=== PATIENT | female | born 1960 | race African-American/Black ===

== ENCOUNTER 2019-11-06 03:08 | Inpatient (IN) | payer MEDICARE, MEDICAID ==
[~2019-11-06] VITALS: Ht 160 cm; Wt 66.2 kg
[2019-11-06] MEDS ORDERED: ONDANSETRON HCL 4MG/2ML INJ IV STA (03:15)
[2019-11-06] MEDS ORDERED: SODIUM CHLORIDE 0.9% 1,000 ML IV ONE (03:15)
[2019-11-06 03:41] LABS: BASOPHILS % 0.8 % (0.0-2.0); EOSINOPHILS % 1.1 % (0.0-5.0); HEMATOCRIT. 43.3 % (36.0-48.0); HEMOGLOBIN. 14.8 g/dL (12.0-16.0); LYMPHOCYTES % 25.7 % (20.0-50.0); MEAN CORPUSCULAR HEMOGLOBIN 29.5 pg (28.0-32.0); MEAN CORPUSCULAR VOLUME 86.4 fL (81.0-99.0); MEAN PLATELET VOLUME 8.8 fl (7.4-10.4); MONOCYTES % 6.3 % (2.0-8.0); NEUTROPHILS % 66.1 % (40.0-76.0); PLATELET 285 x1000/uL (130-400); RED BLOOD CELL COUNT 5.01 mill/uL (4.2-5.4); RED CELL DISTRIBUTION WIDTH 14.3 % (11.6-14.6)
[2019-11-06 03:48] LABS: CHLORIDE 114 mEq/L (98-107)
[2019-11-06] MEDS ORDERED: HYDRALAZINE 20MG/ML VIAL IV ONE (04:15)
[2019-11-06] MEDS ORDERED: METOCLOPRAMIDE HCL 10MG/2ML VIAL IV ONE (04:15)
[2019-11-06] MEDS ORDERED: GUAIFENESIN 200MG/10ML SUGAR FREE UDC PO PRN (06:15)
[2019-11-06] MEDS ORDERED: DOCUSATE SODIUM 100MG CAPSULE PO PRN (06:15)
[2019-11-06] MEDS ORDERED: DEXTROSE 50% WATER 50ML SYRINGE IV PRN (06:15)
[2019-11-06] MEDS ORDERED: CLONIDINE 0.1MG TABLET PO PRN (06:15)
[2019-11-06] MEDS ORDERED: NITROGLYCERIN 0.4MG TABLET SL SL PRN (06:15)
[2019-11-06] MEDS ORDERED: KETOROLAC 15MG/ML VIAL IV PRN (06:15)
[2019-11-06] MEDS ORDERED: MAGNESIUM/ALUMINUM HYDROXIDE/SIMETHICONE 30ML UDC PO PRN (06:15)
[2019-11-06] MEDS ORDERED: ACETAMINOPHEN 325MG TABLET PO PRN ×2 (06:15)
[2019-11-06] MEDS ORDERED: ZOLPIDEM TARTRATE 5MG TABLET PO PRN (06:15)
[2019-11-06] MEDS ORDERED: IPRATROPIUM/ALBUTEROL 0.5-3(2.5)MG/3ML NEB ORI PRN (06:15)
[2019-11-06] MEDS: NITROGLYCERIN OINT 1GM/INCH UDPKT TD SCH ×3 (08:52→21:47)
[2019-11-06] MEDS: PANTOPRAZOLE SODIUM 40 MG/VIAL IV SCH (08:52)
[2019-11-06] MEDS: ONDANSETRON HCL 4MG/2ML INJ IV PRN (08:53)
[2019-11-06] MEDS: LORAZEPAM 2MG/ML CPJ IV PRN ×2 (08:53→19:30)
[2019-11-06] MEDS: METOPROLOL TARTRATE 25MG TABLET PO SCH ×2 (09:00→20:54)
[2019-11-06] MEDS: ENOXAPARIN 40MG/0.4ML SYR SUBCUT SCH (09:00)
[2019-11-06] MEDS: AMLODIPINE 10MG TABLET PO SCH (09:00)
[2019-11-06] MEDS: LISINOPRIL 20MG TABLET PO SCH ×2 (09:00→20:54)
[2019-11-06] MEDS: HYDRALAZINE 20MG/ML VIAL IV PRN (10:09)
[2019-11-06] MEDS: INSULIN LISPRO 100 UNITS/ML SUBCUT SCH ×5 (10:15→20:58)
[2019-11-06] MEDS: METOCLOPRAMIDE 10MG/10 ML UDC PO SCH ×4 (10:17→20:53)
[2019-11-06] MEDS: SUCRALFATE 1 G/10 ML UDC PO SCH ×4 (10:17→20:53)
[2019-11-06] MEDS: BLOOD SUGAR DIAGNOSTIC STRIP TEST SCH ×3 (11:30→21:48)
[2019-11-06] MEDS: LEVOFLOXACIN 500MG PREMIX 100 ML IV SCH (15:00)
[2019-11-06 15:12] VITALS: BP 118/72
[2019-11-06 15:23] VITALS: BP 118/72
[2019-11-06] MEDS: CEFTRIAXONE 1 G PREMIX 50 ML IV SCH (15:38)
[2019-11-06 16:00] VITALS: BP 126/63
[2019-11-06] MEDS ORDERED: TICA90TA MT (18:55)
[2019-11-06] MEDS ORDERED: GLIP10TA10 MT (18:55)
[2019-11-06] MEDS ORDERED: FENO48TA9 MT (18:55)
[2019-11-06] MEDS ORDERED: CLON-457 PO (18:55)
[2019-11-06] MEDS ORDERED: ATOR40TA70 MT (18:55)
[2019-11-06] MEDS ORDERED: NIFE20CA MT (18:55)
[2019-11-06] MEDS ORDERED: LISI40TA4 MT (18:55)
[2019-11-06] MEDS ORDERED: ISOS20TA57 MT (18:55)
[2019-11-06] MEDS ORDERED: METF-414 MT (18:55)
[2019-11-06] MEDS ORDERED: DULO30CA52 PO (18:55)
[2019-11-06 20:00] VITALS: BP 175/81
[2019-11-07] VITALS: BP 170/63
[2019-11-07] MEDS: HYDRALAZINE 20MG/ML VIAL IV PRN (01:07)
[2019-11-07 04:00] VITALS: BP 169/62
[2019-11-07 05:17] LABS: CLARITY URINE CLOUDY (CLEAR); COLOR URINE YELLOW (YELLOW); KETONES URINE TRACE (NEGATIVE); LEUKOCYTE ESTERASE URINE NEGATIVE (NEGATIVE); NITRITE URINE NEGATIVE (NEGATIVE); OCCULT BLOOD URINE NEGATIVE (NEGATIVE); PH URINE 5.5 (4.5-8.0); PROTEIN URINE 4+ (NEGATIVE); SPECIFIC GRAVITY URINE 1.024 (1.005-1.030); UROBILINOGEN URINE 0.2 E.U./dL (0.2-1.0)
[2019-11-07] MEDS: NITROGLYCERIN OINT 1GM/INCH UDPKT TD SCH ×3 (06:02→22:03)
[2019-11-07] MEDS: SUCRALFATE 1 G/10 ML UDC PO SCH ×4 (06:02→21:15)
[2019-11-07] MEDS: METOCLOPRAMIDE 10MG/10 ML UDC PO SCH ×4 (06:02→21:15)
[2019-11-07 06:17] LABS: *AMPHETAMINES SCREEN URINE NEGATIVE (NEGATIVE); *BENZODIAZEPINES SCREEN URINE NEGATIVE (NEGATIVE); *COCAINE SCREEN URINE NEGATIVE (NEGATIVE); METHADONE URINE SCREEN NEGATIVE (NEGATIVE); OPIATES URINE SCREEN NEGATIVE (NEGATIVE)
[2019-11-07 06:18] LABS: CANNABINOID URINE SCREEN NEGATIVE (NEGATIVE); PHENCYCLIDINE URINE SCREEN PRESUMTIVE POSITIVE (NEGATIVE)
[2019-11-07 06:19] LABS: *BARBITURATES SCREEN URINE NEGATIVE (NEGATIVE)
[2019-11-07] MEDS: BLOOD SUGAR DIAGNOSTIC STRIP TEST SCH ×4 (06:54→20:58)
[2019-11-07] MEDS: INSULIN LISPRO 100 UNITS/ML SUBCUT SCH ×4 (06:54→21:17)
[2019-11-07 08:00] VITALS: BP 153/54
[2019-11-07] MEDS: ONDANSETRON HCL 4MG/2ML INJ IV PRN (08:53)
[2019-11-07] MEDS: AMLODIPINE 10MG TABLET PO SCH (09:07)
[2019-11-07] MEDS: LISINOPRIL 20MG TABLET PO SCH ×2 (09:07→21:15)
[2019-11-07] MEDS: METOPROLOL TARTRATE 25MG TABLET PO SCH ×2 (09:07→21:15)
[2019-11-07] MEDS: ENOXAPARIN 40MG/0.4ML SYR SUBCUT SCH (09:08)
[2019-11-07] MEDS: PANTOPRAZOLE SODIUM 40 MG/VIAL IV SCH (09:08)
[2019-11-07 12:00] VITALS: BP 155/115
[2019-11-07 16:00] VITALS: BP 166/67
[2019-11-07] MEDS: CEFTRIAXONE 1 G PREMIX 50 ML IV SCH (16:06)
[2019-11-07] MEDS: LEVOFLOXACIN 500MG PREMIX 100 ML IV SCH (17:55)
[2019-11-07 20:00] VITALS: BP 154/61
[2019-11-08] VITALS (7 sets, daily range): BP systolic 111–172; BP diastolic 50–76
[2019-11-08] MEDS: HYDRALAZINE 20MG/ML VIAL IV PRN (00:51)
[2019-11-08] MEDS: ONDANSETRON HCL 4MG/2ML INJ IV PRN ×2 (02:56→09:25)
[2019-11-08] MEDS: BLOOD SUGAR DIAGNOSTIC STRIP TEST SCH ×4 (05:56→21:51)
[2019-11-08] MEDS: SUCRALFATE 1 G/10 ML UDC PO SCH ×4 (06:21→21:00)
[2019-11-08] MEDS: METOCLOPRAMIDE 10MG/10 ML UDC PO SCH ×4 (06:21→21:27)
[2019-11-08] MEDS: INSULIN LISPRO 100 UNITS/ML SUBCUT SCH ×4 (06:22→22:18)
[2019-11-08] MEDS: NITROGLYCERIN OINT 1GM/INCH UDPKT TD SCH ×3 (06:22→21:28)
[2019-11-08] MEDS: PANTOPRAZOLE SODIUM 40 MG/VIAL IV SCH (09:22)
[2019-11-08] MEDS: METOPROLOL TARTRATE 25MG TABLET PO SCH ×2 (09:23→21:27)
[2019-11-08] MEDS: LISINOPRIL 20MG TABLET PO SCH ×2 (09:23→21:27)
[2019-11-08] MEDS: AMLODIPINE 10MG TABLET PO SCH (09:23)
[2019-11-08] MEDS: ENOXAPARIN 40MG/0.4ML SYR SUBCUT SCH (09:24)
[2019-11-08] MEDS: CEFTRIAXONE 1 G PREMIX 50 ML IV SCH (13:47)
[2019-11-08] MEDS: LEVOFLOXACIN 500MG PREMIX 100 ML IV SCH (15:22)
[2019-11-09] VITALS: BP 115/64
[2019-11-09 04:00] VITALS: BP 120/74
[2019-11-09] MEDS: METOCLOPRAMIDE 10MG/10 ML UDC PO SCH (05:50)
[2019-11-09] MEDS: NITROGLYCERIN OINT 1GM/INCH UDPKT TD SCH (05:50)
[2019-11-09] MEDS: SUCRALFATE 1 G/10 ML UDC PO SCH (05:50)
[2019-11-09] MEDS: BLOOD SUGAR DIAGNOSTIC STRIP TEST SCH (06:46)
[2019-11-09] MEDS: INSULIN LISPRO 100 UNITS/ML SUBCUT SCH (06:46)
[2019-11-09 08:00] VITALS: BP 145/59
[2019-11-09] MEDS: PANTOPRAZOLE SODIUM 40 MG/VIAL IV SCH (08:37)
[2019-11-09] MEDS: ENOXAPARIN 40MG/0.4ML SYR SUBCUT SCH (08:37)
[2019-11-09] MEDS: AMLODIPINE 10MG TABLET PO SCH (08:37)
[2019-11-09] MEDS: LISINOPRIL 20MG TABLET PO SCH (08:38)
[2019-11-09] MEDS: METOPROLOL TARTRATE 25MG TABLET PO SCH (08:38)
[2019-11-09 11:26] VITALS: BP 140/62
[2019-11-25] MEDS ORDERED: METH4TAB17 MT (23:49)
[2019-11-25] MEDS ORDERED: HYDR-4134 MT (23:49)
[2019-11-25] MEDS ORDERED: ASPI-986 MT (23:49)
[2019-11-25] MEDS ORDERED: TIOT18CA3 INH (23:49)
[2019-11-25] MEDS ORDERED: ISOS30TA6 MT (23:49)
[2019-11-25] MEDS ORDERED: ASPI-1153 PO (23:49)
[2019-11-25] MEDS ORDERED: CLON0.2T MT (23:49)
[2019-11-25] MEDS ORDERED: BUDE6.9H INH (23:49)
[2019-11-25] MEDS ORDERED: DIPH25TA24 MT (23:49)
[2019-11-27] MEDS ORDERED: PROT40 MT (16:59)
== END 2019-11-09 11:50 | disposition home or self-care (01) | DRG 74 ==
LOC: ER 03:08 → MICUSO 05:42 → EDBEDREQ 05:45 → EDBEDREQSVC 05:45 → 5WST 14:55
PROVIDERS: ADMIT Internal Medicine; ATTEND Internal Medicine
DX: E11.43 Type 2 diabetes mellitus with diabetic autonomic (poly)neuropathy (principal); N12 Tubulo-interstitial nephritis, not specified as acute or chronic; I16.1 Hypertensive emergency; E11.65 Type 2 diabetes mellitus with hyperglycemia; K31.84 Gastroparesis; F16.10 Hallucinogen abuse, uncomplicated; K29.70 Gastritis, unspecified, without bleeding; I10 Essential (primary) hypertension; Z53.20 Procedure and treatment not carried out because of patient's decision for unspecified reasons; Z79.4 Long term (current) use of insulin; Z79.84 Long term (current) use of oral hypoglycemic drugs
CPT/HCPCS: 36415; 74176; 80053; 80061; 80305; 81003; 82962; 83036; 84484; 85025; 93005; 93970; 96374; 99285; C9113; J0360; J0696; J1650; J1815; J1956; J2060; J2405; J2765; J7030; J8597